=== PATIENT | female | born 1975 | race Two or more races ===

== ENCOUNTER 2016-07-30 13:56 | Outpatient (RCR) | payer MEDICARE, MEDICAID ==
[~2016-07-30 13:56] MED LIST: ACETAMINOP650 MG/20. ORAL; AMLODIPINE BESY10 MG ORAL; AMLODIPINE BESYL5 MG ORAL; AMOXICILLIN500 MG ORAL; AUGMENTIN 500M500 MG ORAL; CALCITRIOL0.25 MCG PO; CALCITRIOL1 MCG/1 ML ORAL; CILOXAN 0.3% O1 DROP; CLONIDINE 0.2M0.2 MG ORAL; COLACE100 MG ORAL; COLACE250 MG ORAL; COSOPT1 DRO2; COZAAR50 MG ORAL; CYCLOBENZAPRINE10 MG ORAL; IBUPROFEN600 MG ORAL; INSULIN SYRING1 EA44; LANTUS5 UNITS *; LEVAQUIN P IVPB; NEPHROVITE1 TAB ORAL; NKM; NORVASC10 MG ORAL; NORVASC5 MG ORAL; NOVOLOG100 UNIT/3 SUBQ; ORTHO TRI-CYCL1 EAC1 PO; PHOSLO PO; PHOSLO667 M1 ORAL; PROCARDIA XL90 M1 ORAL; PROCARDIA XL90 M1 PO; RENAGEL400 MG ORAL; RENAGEL800 MG ORAL; RENVELA800 MG ORAL; SANTYL30 GM; TUMS500 MG ORAL; TYLENOL EXTRA500 MG ORAL; VANCOMYCIN1 GM/2502 IVPB; VANCOMYCIN500 MG GT; VASOTEC20 MG PO
== END 2016-08-20 | disposition home or self-care (01) ==
LOC: WCC 13:56
DX: L97.512 Non-pressure chronic ulcer of other part of right foot with fat layer exposed (principal); E11.621 Type 2 diabetes mellitus with foot ulcer; M14.672 Charcot's joint, left ankle and foot; L89.893 Pressure ulcer of other site, stage 3; G60.3 Idiopathic progressive neuropathy; E11.22 Type 2 diabetes mellitus with diabetic chronic kidney disease; N18.6 End stage renal disease; Z90.49 Acquired absence of other specified parts of digestive tract; Z88.2 Allergy status to sulfonamides; Z88.6 Allergy status to analgesic agent; E10.22 Type 1 diabetes mellitus with diabetic chronic kidney disease; E11.49 Type 2 diabetes mellitus with other diabetic neurological complication; Z91.013 Allergy to seafood
CPT/HCPCS: 11042; 11055

== ENCOUNTER 2016-08-27 13:30 | Outpatient (RCR) | payer MEDICARE, MEDICAID | END 2016-09-20 | disposition home or self-care (01) | LOC: WCC 13:30 | DX: L97.512 Non-pressure chronic ulcer of other part of right foot with fat layer exposed (principal); E11.621 Type 2 diabetes mellitus with foot ulcer; M14.672 Charcot's joint, left ankle and foot; N18.6 End stage renal disease; E11.22 Type 2 diabetes mellitus with diabetic chronic kidney disease; Z90.49 Acquired absence of other specified parts of digestive tract; Z90.710 Acquired absence of both cervix and uterus; D64.9 Anemia, unspecified; Z88.2 Allergy status to sulfonamides; Z91.013 Allergy to seafood | CPT/HCPCS: G0463 ==

== ENCOUNTER 2017-04-29 14:30 | Outpatient (RCR) | payer MEDICARE, MEDICAID ==
[2017-05-01] MEDS ORDERED: ACETAMINOPHEN-1 EAC1 ORAL (12:59)
== END 2017-05-22 | disposition home or self-care (01) ==
LOC: WCC 14:30
DX: L97.511 Non-pressure chronic ulcer of other part of right foot limited to breakdown of skin (principal); E11.621 Type 2 diabetes mellitus with foot ulcer; M14.672 Charcot's joint, left ankle and foot; N18.6 End stage renal disease; E11.42 Type 2 diabetes mellitus with diabetic polyneuropathy; G99.0 Autonomic neuropathy in diseases classified elsewhere; E11.22 Type 2 diabetes mellitus with diabetic chronic kidney disease; L84 Corns and callosities; E11.628 Type 2 diabetes mellitus with other skin complications; Z88.2 Allergy status to sulfonamides
CPT/HCPCS: 11042; 11055

== ENCOUNTER 2017-05-01 11:57 | Emergency (ER) | payer MEDICARE, MEDICAID ==
[~2017-05-01] VITALS: Ht 165.1 cm; Wt 79.4 kg
[2017-05-01] MEDS ORDERED: ACETAMINOPHEN-1 EAC1 ORAL (12:59)
[2017-05-01 13:20] VITALS: BP 127/66
--- NOTE | 2017-05-01 14:07 | Diagnostic Imaging Report ---
Indication: Pain 3 views of the left knee were obtained. Findings: Bones are osteopenic. There are vascular calcifications present. No fracture or malalignment identified. Impression: No acute
--- NOTE | 2017-05-01 14:25 | Emergency Room Report ---
History of Present Illness General Chief Complaint: Lower Extremity Injury Source: Patient, Medical Record Present Illness HPI The patient is a 42-year-old female sent in for left knee pain. She states that this began yesterday while walking for no apparent reason. She denies falling or any injury to the knee. She denies previous injury to the knee. She states the pain is a 9/10 dull ache and does not radiate from the knee. Worse with movement. She denies any numbness or tingling. She denies other symptoms including fever, chills, calf pain, shortness of breath, rash. She denies history of gout or septic arthritis Allergies: Coded Allergies: SHELLFISH DERIVED (Verified Allergy, Intermediate, Rash, 11/03/14) HYDROMORPHONE (Unverified Allergy, Mild, 10/30/14) ONDANSETRON (Unverified Allergy, Mild, 10/30/14) HYDROMORPHONE HCL (Verified Allergy, Unknown, N/V, 06/01/14) NAUSEA AND VOMITING ONDANSETRON HCL (Verified Allergy, Unknown, GI IRRITATION, NAUSEA, VOMITTING, 06/01/14) GI IRRITATION, NAUSEA AND VOMITING SULFA (SULFONAMIDE ANTIBIOTICS) (Verified Allergy, Unknown, 10/05/15) Patient History Past Medical History: see triage record Last Menstrual Period: 04/27/17 Now: No Reviewed Nursing Documentation: PMH: Agreed, PSxH: Agreed Nursing Documentation-PMH Past Medical History: No History, Except For Hx Cardiac Problems: No - anemia Hx Hypertension: Yes Hx Diabetes: No Hx Cancer: No Hx Gastrointestinal Problems: Yes Hx Dialysis: Yes - Renal Failure, HEMODIALYSIS, Tu//Fri Hx Neurological Problems: No Hx Seizures: No Hx Dizziness: Yes - "I Fell February 20 2013 and have been dizzy since then." Hx Weakness: Yes - "I feel weak in my whole body." Review of Systems All Other Systems: negative except mentioned in HPI Physical Exam Vital Signs Date Time Temp Pulse Resp B/P (MAP) Pulse Ox O2 Delivery O2 Flow Rate FiO2 05/01/17 12:10 97.3 87 18 157/90 100 Room Air Sp02 EP Interpretation: reviewed, normal General Appearance: no apparent distress, alert, GCS 15, non-toxic Head: normocephalic, atraumatic Eyes: bilateral eye normal inspection, bilateral eye PERRL ENT: hearing grossly normal, normal pharynx, no angioedema, normal voice Neck: full range of motion, supple/symm/no masses Musculoskeletal: normal inspection - L knee, normal range of motion - L knee, no calf tenderness, other - The patient has a deformity of the left ankle which she states is chronic and has been unchanged Neurologic: alert, oriented x3, responsive, motor strength/tone normal, sensory intact, speech normal Psychiatric: judgement/insight normal, memory normal, mood/affect normal, no suicidal/homicidal ideation Skin: normal color, no rash, warm/dry, well hydrated Procedures Splinting Splinting : Consent: Verbal Location: L knee Pre-Made Type: NICK wrap Pre-Proc Neuro Vasc Exam: normal Post-Proc Neuro Vasc Exam: normal Patient Tolerated: Well Complications: None Medical Decision Making PA Attestation Dr. Christian is my supervising physician. Patient management was discussed with my supervising physician Diagnostic Impression: Primary Impression: Knee pain, left Qualified Codes: M25.562 - Pain in left knee ER Course The patient is a 42-year-old female sent in for left knee pain Ddx considered include but not limited to sprain/strain, fracture, contusion, gout, septic arthritis, among others PE: NAD Left knee: No obvious deformity. No skin changes. Full active range of motion is intact. No edema, No calf tenderness or swelling Left knee x-ray is unremarkable for acute findings Nick wrap is placed over the left knee The patient is discharged home with pain medication and will follow up with her primary doctor. ER precautions given Other X-Ray Diagnostic Results Other X-Ray Diagnostic Results : X-Ray ordered: L knee # of Views/Limited Vs Complete: 3 View Indication: Pain EP Interpretation: Yes PA Xray: Interpretation reviewed, by supervising MD, and agrees with findings. Interpretation: no dislocation, no soft tissue swelling, no fractures Impression: No acute disease Electronically Signed by: Cj Zelaya PA-C Last Vital Signs Date Time Temp Pulse Resp B/P (MAP) Pulse Ox O2 Delivery O2 Flow Rate FiO2 05/01/17 13:20 97.3 83 18 127/66 96 Room Air Status: improved Disposition: HOME, SELF-CARE Condition: Improved Scripts Acetaminophen With Codeine (T#3) (TYLENOL #3 TAB*) Y Tab 1 TAB ORAL Q6HR Y for For Pain, #12 TAB Prov: CJ ZELAYA 05/01/17 Referrals: PAL TREVINO (PCP) Patient Instructions: Knee Pain Additional Instructions: I discussed my findings with the patient. All questions and concerns have been answered. Treatment and medication compliance have been addressed. I advised the patient that they need to follow up with PMD in 3-5 days. Return to ED if pain remains or worsens, numbness or tingling occurs, new rash is noticed, fever is noticed, or if needed for any reason. Patient verbalized understanding of discharge instructions. CJ ZELAYA May 01, 2017 14:25
[2017-05-08] MEDS ORDERED: Neosporin Oint 15gm TOPIC ONE (11:30)
== END 2017-05-01 13:20 | disposition home or self-care (01) ==
LOC: EMR 13:05
DX: M25.562 Pain in left knee (principal); I10 Essential (primary) hypertension; M85.862 Other specified disorders of bone density and structure, left lower leg; Z88.2 Allergy status to sulfonamides; Z88.8 Allergy status to other drugs, medicaments and biological substances; Z91.013 Allergy to seafood
CPT/HCPCS: 99283

== ENCOUNTER 2017-07-15 14:34 | Outpatient (RCR) | payer MEDICARE, MEDICAID ==
[~2017-07-15 14:34] MED LIST changes: +ACETAMINOPHEN-1 EAC1 ORAL
== END 2017-07-23 | disposition home or self-care (01) ==
LOC: WCC 14:34
DX: L97.511 Non-pressure chronic ulcer of other part of right foot limited to breakdown of skin (principal); E11.621 Type 2 diabetes mellitus with foot ulcer; M14.672 Charcot's joint, left ankle and foot; N18.6 End stage renal disease; E11.42 Type 2 diabetes mellitus with diabetic polyneuropathy; G99.0 Autonomic neuropathy in diseases classified elsewhere; E11.628 Type 2 diabetes mellitus with other skin complications; Z90.89 Acquired absence of other organs; Z90.49 Acquired absence of other specified parts of digestive tract; E11.22 Type 2 diabetes mellitus with diabetic chronic kidney disease; Z99.2 Dependence on renal dialysis; L84 Corns and callosities; Z88.2 Allergy status to sulfonamides; Z88.8 Allergy status to other drugs, medicaments and biological substances
CPT/HCPCS: 11042

== ENCOUNTER 2017-09-16 14:03 | Outpatient (RCR) | payer MEDICARE, MEDICAID | END 2017-09-20 | disposition home or self-care (01) | LOC: WCC 14:03 | DX: L97.511 Non-pressure chronic ulcer of other part of right foot limited to breakdown of skin (principal); M14.672 Charcot's joint, left ankle and foot; N18.6 End stage renal disease; G99.0 Autonomic neuropathy in diseases classified elsewhere; L84 Corns and callosities; Z90.89 Acquired absence of other organs; Z90.49 Acquired absence of other specified parts of digestive tract; Z94.0 Kidney transplant status; E10.621 Type 1 diabetes mellitus with foot ulcer; E10.22 Type 1 diabetes mellitus with diabetic chronic kidney disease; Z99.2 Dependence on renal dialysis; Z88.2 Allergy status to sulfonamides; Z88.8 Allergy status to other drugs, medicaments and biological substances; Z91.013 Allergy to seafood | CPT/HCPCS: 11042 ==

== ENCOUNTER 2017-09-23 11:25 | Outpatient (RCR) | payer MEDICARE, MEDICAID | END 2017-10-20 | disposition home or self-care (01) | LOC: WCC 11:25 | DX: L97.511 Non-pressure chronic ulcer of other part of right foot limited to breakdown of skin (principal); M14.672 Charcot's joint, left ankle and foot; N18.6 End stage renal disease; G99.0 Autonomic neuropathy in diseases classified elsewhere; Z88.2 Allergy status to sulfonamides; Z90.89 Acquired absence of other organs; Z90.49 Acquired absence of other specified parts of digestive tract; Z94.0 Kidney transplant status; E10.22 Type 1 diabetes mellitus with diabetic chronic kidney disease; Z99.2 Dependence on renal dialysis; E10.621 Type 1 diabetes mellitus with foot ulcer; L84 Corns and callosities; Z88.8 Allergy status to other drugs, medicaments and biological substances | CPT/HCPCS: 11042 ==

== ENCOUNTER 2017-10-21 10:30 | Outpatient (RCR) | payer MEDICARE, MEDICAID | END 2017-11-20 | disposition home or self-care (01) | LOC: WCC 10:30 | DX: L97.511 Non-pressure chronic ulcer of other part of right foot limited to breakdown of skin (principal); E11.621 Type 2 diabetes mellitus with foot ulcer; M14.672 Charcot's joint, left ankle and foot; N18.6 End stage renal disease; E11.42 Type 2 diabetes mellitus with diabetic polyneuropathy; G99.0 Autonomic neuropathy in diseases classified elsewhere; E11.628 Type 2 diabetes mellitus with other skin complications; E11.22 Type 2 diabetes mellitus with diabetic chronic kidney disease; Z99.2 Dependence on renal dialysis; Z90.49 Acquired absence of other specified parts of digestive tract; Z90.89 Acquired absence of other organs; Z94.0 Kidney transplant status; Z88.2 Allergy status to sulfonamides; Z88.8 Allergy status to other drugs, medicaments and biological substances; Z91.013 Allergy to seafood | CPT/HCPCS: 11042; 15275; Q4133 ==

== ENCOUNTER 2017-12-23 10:28 | Outpatient (RCR) | payer MEDICARE, MEDICAID | END 2018-01-20 | disposition home or self-care (01) | LOC: WCC 10:28 | DX: L97.511 Non-pressure chronic ulcer of other part of right foot limited to breakdown of skin (principal); M14.672 Charcot's joint, left ankle and foot; N18.6 End stage renal disease; G99.0 Autonomic neuropathy in diseases classified elsewhere; Z88.2 Allergy status to sulfonamides; Z88.8 Allergy status to other drugs, medicaments and biological substances; Z90.89 Acquired absence of other organs; Z90.49 Acquired absence of other specified parts of digestive tract; Z94.0 Kidney transplant status; E10.22 Type 1 diabetes mellitus with diabetic chronic kidney disease; E10.621 Type 1 diabetes mellitus with foot ulcer; E10.42 Type 1 diabetes mellitus with diabetic polyneuropathy; Z91.013 Allergy to seafood | CPT/HCPCS: 11043 ==

== ENCOUNTER 2018-01-27 14:57 | Outpatient (RCR) | payer MEDICARE, MEDICAID | END 2018-02-20 | disposition home or self-care (01) | LOC: WCC 14:57 | DX: L97.511 Non-pressure chronic ulcer of other part of right foot limited to breakdown of skin (principal); E11.621 Type 2 diabetes mellitus with foot ulcer; M14.672 Charcot's joint, left ankle and foot; N18.6 End stage renal disease; E11.42 Type 2 diabetes mellitus with diabetic polyneuropathy; G99.0 Autonomic neuropathy in diseases classified elsewhere; E11.628 Type 2 diabetes mellitus with other skin complications; Z88.2 Allergy status to sulfonamides; Z88.8 Allergy status to other drugs, medicaments and biological substances; E11.22 Type 2 diabetes mellitus with diabetic chronic kidney disease; Z99.2 Dependence on renal dialysis; Z90.89 Acquired absence of other organs; Z90.49 Acquired absence of other specified parts of digestive tract; Z94.0 Kidney transplant status | CPT/HCPCS: 11043 ==

== ENCOUNTER 2018-02-24 14:00 | Outpatient (RCR) | payer MEDICARE, MEDICAID | END 2018-03-22 | disposition home or self-care (01) | LOC: WCC 14:00 | DX: L97.513 Non-pressure chronic ulcer of other part of right foot with necrosis of muscle (principal); E11.621 Type 2 diabetes mellitus with foot ulcer; E11.42 Type 2 diabetes mellitus with diabetic polyneuropathy; G99.0 Autonomic neuropathy in diseases classified elsewhere; E11.628 Type 2 diabetes mellitus with other skin complications; Z90.89 Acquired absence of other organs; Z90.49 Acquired absence of other specified parts of digestive tract; M14.672 Charcot's joint, left ankle and foot; Z88.2 Allergy status to sulfonamides; E11.22 Type 2 diabetes mellitus with diabetic chronic kidney disease; N18.6 End stage renal disease; Z99.2 Dependence on renal dialysis; Z94.0 Kidney transplant status; Z88.8 Allergy status to other drugs, medicaments and biological substances; L97.511 Non-pressure chronic ulcer of other part of right foot limited to breakdown of skin | CPT/HCPCS: 11042; 11043; 11055 ==

== ENCOUNTER 2018-03-31 14:11 | Outpatient (RCR) | payer MEDICARE, MEDICAID | END 2018-04-22 | disposition home or self-care (01) | LOC: WCC 14:11 | DX: L97.511 Non-pressure chronic ulcer of other part of right foot limited to breakdown of skin (principal); E11.621 Type 2 diabetes mellitus with foot ulcer; M14.672 Charcot's joint, left ankle and foot; N18.6 End stage renal disease; E11.42 Type 2 diabetes mellitus with diabetic polyneuropathy; G99.0 Autonomic neuropathy in diseases classified elsewhere; E11.628 Type 2 diabetes mellitus with other skin complications; L60.2 Onychogryphosis; E11.22 Type 2 diabetes mellitus with diabetic chronic kidney disease; Z90.89 Acquired absence of other organs; Z90.49 Acquired absence of other specified parts of digestive tract; Z94.0 Kidney transplant status; Z88.2 Allergy status to sulfonamides; Z99.2 Dependence on renal dialysis | CPT/HCPCS: 11042; 11721 ==

== ENCOUNTER 2018-12-29 13:25 | Outpatient (RCR) | payer MEDICARE, MEDICAID | END 2019-01-20 | disposition home or self-care (01) | LOC: WCC 13:25 | DX: E11.628 Type 2 diabetes mellitus with other skin complications (principal); N18.6 End stage renal disease; E11.42 Type 2 diabetes mellitus with diabetic polyneuropathy; G99.0 Autonomic neuropathy in diseases classified elsewhere; L84 Corns and callosities; M14.679 Charcot's joint, unspecified ankle and foot; E10.22 Type 1 diabetes mellitus with diabetic chronic kidney disease; Z88.2 Allergy status to sulfonamides; Z90.49 Acquired absence of other specified parts of digestive tract; Z90.89 Acquired absence of other organs; Z94.0 Kidney transplant status; L85.9 Epidermal thickening, unspecified; Z88.8 Allergy status to other drugs, medicaments and biological substances | CPT/HCPCS: 11055 ==

== ENCOUNTER 2019-03-30 18:56 | Emergency (ER) | payer MEDICARE, MEDICAID ==
[~2019-03-30] VITALS: Ht 162.6 cm; Wt 99.8 kg
[2019-03-30 19:24] VITALS: BP 132/64
--- NOTE | 2019-03-30 19:24 | NUR ---
ED Nurse Note: pt ambulated to ed with with steady gait c/o of generalized swelling from face to abdomen s/p taking mylanta yesterday at 1200. pt placed into gown and placed on lunchroom monitor. urine specimen obtained.
--- NOTE | 2019-03-30 19:30 | NUR ---
ED Nurse Note: pt denies nausea, vomiting, and abdomnial pain. pt states she has an appointment with GI md and bisque placer tomorrow.
--- NOTE | 2019-03-30 19:40 | Emergency Room Report ---
History of Present Illness General Chief Complaint: Abdominal Pain Source: Patient Present Illness HPI Disclaimer: Please note that this report is being documented using DRAGON technology. This can lead to erroneous entry secondary to incorrect interpretation by the dictating instrument. HPI: 44-year-old female with a history of ESRD status post donor kidney transplant 2017, hypertension presents for evaluation of bloating. Patient states she has had intermittent periumbilical abdominal pain and constipation with increased gas for the past month. She started taking some Mylanta and calcium supplements 3 days ago after which she noticed her face and torso were becoming "bloated." She also reported itching but denied any urticaria, skin breakdown, throat closure sensation, wheezing, vomiting or diarrhea. She has no abdominal pain at this time and has scheduled follow-up with her assistant auditor in 2 days and her adolescent psychiatrist next week. She was told to go to the ER by her assistant auditor to evaluate her kidney function as a possible cause of fluid retention. She is otherwise feeling well and has no complaints. Denies any recent illness, fever, chills, chest pain, shortness of breath. Has stopped taking the Mylanta and the calcium. PMH: ESRD status post kidney transplant, hypertension PSH: Appendectomy, cholecystectomy, kidney transplant 2017 Allergies: Zofran, shellfish Social Hx: Denies smoking, alcohol or tobacco use Allergies: Coded Allergies: SHELLFISH DERIVED (Verified Allergy, Intermediate, Rash, 11/03/14) ONDANSETRON (Unverified Allergy, Mild, 10/30/14) ONDANSETRON HCL (Verified Allergy, Unknown, GI IRRITATION, NAUSEA, VOMITTING, 06/01/14) GI IRRITATION, NAUSEA AND VOMITING Patient History Last Menstrual Period: 02/2019 Now: No Nursing Documentation-PMH Hx Cardiac Problems: No - anemia Hx Hypertension: Yes Hx Diabetes: Yes Hx Cancer: No Hx Gastrointestinal Problems: Yes - Kidney transplant 05/25/2017 Hx Dialysis: Yes - Renal Failure, Hx Neurological Problems: No Hx Seizures: No Hx Dizziness: Yes - "I Fell February 20 2013 and have been dizzy since then." Hx Weakness: Yes - "I feel weak in my whole body." Review of Systems All Other Systems: negative except mentioned in HPI Physical Exam Vital Signs Date Time Temp Pulse Resp B/P (MAP) Pulse Ox O2 Delivery O2 Flow Rate FiO2 03/30/19 19:12 97.5 77 16 132/64 (86) 96 Room Air General: Awake and alert, no acute distress HEENT: NC/AT. EOMI. no periorbital edema, uvula midline. Neck: Supple, trachea midline Chest Wall: No tenderness, no deformity Cardiovascular: RRR. S1 and S2 normal. No murmur appreciated Resp: Normal work of breathing. No cough, wheezing or crackles appreciated Abdomen: Abdomen is soft, his abdomen, nondistended. Nontender Skin: Intact. No abrasions, laceration or rash over the exposed skin, no urticaria or breakdown. Transplant scar in the right lower quadrant is clean dry and intact. MSK: Normal tone and bulk. Moving all extremities. No obvious deformity. Neuro: Awake and alert. Mentating appropriately. Medical Decision Making Diagnostic Impression: Primary Impression: Allergic reaction Additional Impression: Edema ER Course 44-year-old female status post kidney transplant in 2017 presents for evaluation of edema and bloating. Will assess her kidney function but otherwise there is no evidence of anaphylaxis. She may have hypersensitivity to the Mylanta but arrives with stable vital signs and is in no acute distress. She declined Benadryl. Will check screening labs to assess renal function. She has an appointment to follow-up with her assistant auditor in 2 days. Disposition dependent on lab results Laboratory Tests Test 03/30/19 19:36 White Blood Count 8.8 K/UL (4.8-10.8) Red Blood Count 5.29 M/UL (4.20-5.40) Hemoglobin 14.6 G/DL (12.0-16.0) Hematocrit 45.8 % (37.0-47.0) Mean Corpuscular Volume 86 FL (80-99) Mean Corpuscular Hemoglobin 27.6 PG (27.0-31.0) Mean Corpuscular Hemoglobin Concent 32.0 G/DL (32.0-36.0) Red Cell Distribution Width 13.5 % (11.6-14.8) Platelet Count 247 K/UL (150-450) Mean Platelet Volume 7.1 FL (6.5-10.1) Neutrophils (%) (Auto) 75.6 % (45.0-75.0) H Lymphocytes (%) (Auto) 13.9 % (20.0-45.0) L Monocytes (%) (Auto) 8.5 % (1.0-10.0) Eosinophils (%) (Auto) 1.2 % (0.0-3.0) Basophils (%) (Auto) 0.7 % (0.0-2.0) Urine Color Pale yellow Urine Appearance Clear Urine pH 5 (4.5-8.0) Urine Specific [place] 1.010 (1.005-1.035) Urine Protein Negative (NEGATIVE) Urine Glucose (UA) 1+ (NEGATIVE) H Urine Ketones Negative (NEGATIVE) Urine Blood 1+ (NEGATIVE) H Urine Nitrite Negative (NEGATIVE) Urine Bilirubin Negative (NEGATIVE) Urine Urobilinogen Normal MG/DL (0.0-1.0) Urine Leukocyte Esterase 1+ (NEGATIVE) H Urine RBC 0-2 /HPF (0 - 2) Urine WBC 0-2 /HPF (0 - 2) Urine Squamous Epithelial Cells Few /LPF (NONE/OCC) Urine Bacteria Occasional /HPF (NONE) Sodium Level 135 MMOL/L (136-145) L Potassium Level 4.1 MMOL/L (3.5-5.1) Chloride Level 99 MMOL/L (98-107) Carbon Dioxide Level 26 MMOL/L (21-32) Anion Gap 10 mmol/L (5-15) Blood Urea Nitrogen 45 mg/dL (7-18) H Creatinine 1.6 MG/DL (0.55-1.30) H Estimate Glomerular Filtration Rate 34.9 mL/min (>60) Glucose Level 240 MG/DL (74-106) H Calcium Level 9.4 MG/DL (8.5-10.1) Reevaluation Time: 21:03 Last Vital Signs Date Time Temp Pulse Resp B/P (MAP) Pulse Ox O2 Delivery O2 Flow Rate FiO2 03/30/19 19:24 77 16 Room Air 03/30/19 19:24 97.5 132/64 96 Reevaluation Impression Labs are largely within normal limits. No evidence of urinary tract infection, no white count, creatinine is 1.6 which the patient states is around her baseline. She is reassured and will be discharged home. I instructed her no longer to take the Mylanta and calcium until an obvious trigger can be identified. She will follow-up with her assistant auditor at her scheduled appointment later this week. We discussed reasons to return to the emergency department. She understands and agrees with treatment plan will be discharged home. Disposition: HOME, SELF-CARE Condition: Stable Pablito Elias MD Mar 30, 2019 19:40
[2019-03-30 20:01] LABS: APPEARANCE,URINE CLEAR; BILIRUBIN, URINE NEGATIVE (NEGATIVE); COLOR,URINE PALE YELLOW; GLUCOSE, URINE (UA) 1+ (NEGATIVE); KETONES,URINE NEGATIVE (NEGATIVE); LEUKOCYTE ESTERASE ,URINE 1+ (NEGATIVE); NITRITE,URINE NEGATIVE (NEGATIVE); PH,URINE 5 (4.5-8.0); PROTEIN,URINE NEGATIVE (NEGATIVE); UROBILINOGEN,URINE NORMAL MG/DL (0.0-1.0)
[2019-03-30 20:10] LABS: ANION GAP 10 mmol/L (5-15); BLOOD UREA NITROGEN 45 mg/dL (7-18); CALCIUM 9.4 MG/DL (8.5-10.1); CARBON DIOXIDE 26 MMOL/L (21-32); CHLORIDE 99 MMOL/L (98-107); CREATININE 1.6 MG/DL (0.55-1.30); POTASSIUM 4.1 MMOL/L (3.5-5.1); SODIUM 135 MMOL/L (136-145)
[2019-03-30 20:12] LABS: BASOPHILS % (AUTO) 0.7 % (0.0-2.0); EOSINOPHILS % (AUTO) 1.2 % (0.0-3.0); HEMATOCRIT 45.8 % (37.0-47.0); HEMOGLOBIN 14.6 G/DL (12.0-16.0); LYMPHOCYTES % (AUTO) 13.9 % (20.0-45.0); MEAN CORPUSCULAR VOLUME 86 FL (80-99); MONOCYTES % (AUTO) 8.5 % (1.0-10.0); NEUTROPHILS % (AUTO) 75.6 % (45.0-75.0); PLATELET COUNT 247 K/UL (150-450); RED BLOOD COUNT 5.29 M/UL (4.20-5.40); RED CELL DISTRIBUTION WIDTH 13.5 % (11.6-14.8); WHITE BLOOD COUNT 8.8 K/UL (4.8-10.8)
[2019-03-30 21:04] VITALS: BP 126/76
--- NOTE | 2019-03-30 21:04 | NUR ---
ED Nurse Note: pt cleared to be d/c per ermd, pt discharge and aftercare instruction provided, pt education done via discussion and handout, pt advised to follow up with pcp or return to ed if changes in condition, vss, ambulatory w/ steady gait, left w/ all belongings. iv d/c. id band removed.
== END 2019-03-30 21:04 | disposition home or self-care (01) ==
LOC: EMR 19:53
DX: R60.9 Edema, unspecified (principal); T78.40XA Allergy, unspecified, initial encounter; R10.33 Periumbilical pain; E11.22 Type 2 diabetes mellitus with diabetic chronic kidney disease; I12.0 Hypertensive chronic kidney disease with stage 5 chronic kidney disease or end stage renal disease; N18.6 End stage renal disease; Z94.0 Kidney transplant status; Z91.013 Allergy to seafood; Z88.8 Allergy status to other drugs, medicaments and biological substances; X58.XXXA Exposure to other specified factors, initial encounter
CPT/HCPCS: 36415; 80048; 81003; 85025; 99283

== ENCOUNTER 2019-09-18 21:51 | Emergency (ER) | payer MEDICARE, MEDICAID ==
[~2019-09-18] VITALS: Ht 165.1 cm; Wt 104.3 kg
--- NOTE | 2019-09-18 22:02 | NUR ---
ED Nurse Note: Walk-in patient with complaints of palpitations x 1 day and also shares that she noticed decreased urine output with history of kidney transplant x 1. Patient has history of recent diagnosis of hashimotos, hypercholesterol, hypertension and DMII. Patient placed on traffic monitor specialist after physical assessment. Patient able to ambulate with uneven gait due to uneven boot. Patient able to void to render urine sample. will continue to monitor for orders and discharge.
[2019-09-18 22:17] VITALS: BP 104/34
--- NOTE | 2019-09-18 22:17 | NUR ---
ED Nurse Note: microbiological lab technician at bedside completing EKG.
--- NOTE | 2019-09-18 22:34 | Emergency Room Report ---
History of Present Illness General Chief Complaint: Palpitations Source: Patient Present Illness HPI This is a 44-year-old female with a history of kidney transplant in 2017. She presents with chief complaint of palpitation and decreased urination. Is been on and off for last couple days. No fever chills. No chest pain. She complains some dizziness with standing. No nausea or vomiting. No chest pain. Never had palpitation before. She is felt that when she walks she felt her heart beating fast. Denies any other complaint. Allergies: Coded Allergies: SHELLFISH DERIVED (Verified Allergy, Intermediate, Rash, 11/03/14) ONDANSETRON (Unverified Allergy, Mild, 10/30/14) ONDANSETRON HCL (Verified Allergy, Unknown, GI IRRITATION, NAUSEA, VOMITTING, 06/01/14) GI IRRITATION, NAUSEA AND VOMITING COVID-19 Screening Contact w/high risk pt: No Recent Travel to affected area: No Experienced COVID-19 symptoms?: No Patient History Past Medical History: see triage record, old chart reviewed Past Surgical History: other Pertinent Family History: none Social History: Denies: smoking Now: No Immunizations: other Reviewed Nursing Documentation: PMH: Agreed; PSxH: Agreed Nursing Documentation-PMH Hx Cardiac Problems: No - anemia, Marleny's Hx Hypertension: Yes Hx Diabetes: Yes Hx Cancer: No Hx Gastrointestinal Problems: Yes - Kidney transplant 05/25/2017 Hx Dialysis: Yes - Renal Failure, Hx Neurological Problems: No Hx Seizures: No Hx Dizziness: Yes - "I Fell February 20 2013 and have been dizzy since then." Hx Weakness: Yes - "I feel weak in my whole body." Review of Systems Eye: Denies: eye pain, blurred vision ENT: Denies: ear pain, nose congestion, throat swelling Respiratory: Denies: cough, shortness of breath Cardiovascular: Reports: palpitations; Denies: chest pain Gastrointestinal: Denies: abdominal pain, diarrhea, nausea, vomiting Musculoskeletal: Denies: back pain, joint pain Skin: Denies: rash Neurological: Denies: headache, numbness Endocrine: Denies: increased thirst, increased urine Hematologic/Lymphatic: Denies: easy bruising All Other Systems: negative except mentioned in HPI Physical Exam Vital Signs Date Time Temp Pulse Resp B/P (MAP) Pulse Ox O2 Delivery O2 Flow Rate FiO2 09/18/19 21:53 97.7 89 19 104/34 (57) 97 Room Air Vitals normal Sp02 EP Interpretation: reviewed, normal General Appearance: well appearing, no apparent distress, alert Head: normocephalic, atraumatic Eyes: bilateral eye PERRL, bilateral eye EOMI ENT: hearing grossly normal, normal pharynx Neck: full range of motion, supple, no meningismus Respiratory: chest non-tender, lungs clear, normal breath sounds Cardiovascular #1: regular rate, rhythm, no murmur Gastrointestinal: normal bowel sounds, non tender, no mass, no organomegaly, no bruit, non-distended Musculoskeletal: back normal, normal range of motion, gait/station normal Psychiatric: mood/affect normal Medical Decision Making Diagnostic Impression: Primary Impression: Palpitations Additional Impression: Hyperglycemia due to type 1 diabetes mellitus ER Course Patient presents with palpitation. Heart rates been in the 70s and 80s here. No arrhythmia. Kidney function is improved compared to last time she was here. That has been several months however. Her blood sugar is poorly controlled. She says she take NovoLog for it. I see no evidence of ACS, PE, dissection to name a few. No evidence of endorgan damage. Will discharge home after IV fluid. EKG Diagnostic Results Rate: normal Rhythm: NSR ST Segments: no acute changes Rhythm Strip Diag. Results EP Interpretation: yes Rate: 86 Rhythm: NSR, no PVC's, no ectopy Last Vital Signs Date Time Temp Pulse Resp B/P (MAP) Pulse Ox O2 Delivery O2 Flow Rate FiO2 09/18/19 22:17 97.7 86 19 104/34 97 Room Air Status: improved Disposition: HOME, SELF-CARE Condition: Stable Patient Instructions: Palpitations Additional Instructions: Follow-up with your doctor in 7 days. You may need a referral to see a truck jumper for Holter monitoring if you continue to have palpitation. Return if worse. Conner Keyes MD Sep 18, 2019 22:34
--- NOTE | 2019-09-18 22:49 | NUR ---
ED Nurse Note: IV started at left AC able to pull blood but unable to push without pain. IV at left AC Dc'd. IV at left hand started 22G, IV N/S fluid runnig wide open. Will continue to monitor patient for lab results and discharge.
[2019-09-18 22:51] VITALS: BP 163/64
[2019-09-18 22:52] LABS: APPEARANCE,URINE CLEAR; BILIRUBIN, URINE NEGATIVE (NEGATIVE); COLOR,URINE PALE YELLOW; GLUCOSE, URINE (UA) 3+ (NEGATIVE); KETONES,URINE NEGATIVE (NEGATIVE); LEUKOCYTE ESTERASE ,URINE NEGATIVE (NEGATIVE); NITRITE,URINE NEGATIVE (NEGATIVE); PH,URINE 6.5 (4.5-8.0); PROTEIN,URINE NEGATIVE (NEGATIVE); UROBILINOGEN,URINE NORMAL MG/DL (0.0-1.0)
[2019-09-18 22:53] LABS: BASOPHILS % (AUTO) 2.9 % (0.0-2.0); EOSINOPHILS % (AUTO) 1.7 % (0.0-3.0); HEMATOCRIT 43.7 % (37.0-47.0); HEMOGLOBIN 13.7 G/DL (12.0-16.0); LYMPHOCYTES % (AUTO) 12.5 % (20.0-45.0); MEAN CORPUSCULAR VOLUME 88 FL (80-99); MONOCYTES % (AUTO) 4.9 % (1.0-10.0); PLATELET COUNT 223 K/UL (150-450); RED BLOOD COUNT 4.99 M/UL (4.20-5.40); WHITE BLOOD COUNT 9.4 K/UL (4.8-10.8)
[2019-09-18 23:03] LABS: ANION GAP 10 mmol/L (5-15); BLOOD UREA NITROGEN 43 mg/dL (7-18); CALCIUM 9.1 MG/DL (8.5-10.1); CARBON DIOXIDE 24 MMOL/L (21-32); CHLORIDE 98 MMOL/L (98-107); CREATININE 1.5 MG/DL (0.55-1.30); POTASSIUM 4.3 MMOL/L (3.5-5.1); SODIUM 132 MMOL/L (136-145)
--- NOTE | 2019-09-18 23:20 | NUR ---
ED Nurse Note: Patient resting comfortably, IV N/S runing, will continue to monitor for discharge.
[2019-09-18] MEDS ORDERED: Insulin Human Regular 100units/ml 3ml IV ONE (23:30)
[2019-09-19 00:35] VITALS: BP 163/64
--- NOTE | 2019-09-19 00:35 | NUR ---
ER DISCHARGE NOTE: Patient is cleared to be discharged per ERMD, pt is aox4, on room air, with stable vital signs. pt was given dc and prescription instructions, pt was able to verbalize understanding, pt id band and iv site removed without complications. pt is able to ambulate with steady gait. pt took all belongings.
== END 2019-09-19 00:35 | disposition home or self-care (01) ==
LOC: EMR 22:56
DX: R00.2 Palpitations (principal); E10.65 Type 1 diabetes mellitus with hyperglycemia; Z94.0 Kidney transplant status; Z88.8 Allergy status to other drugs, medicaments and biological substances; I10 Essential (primary) hypertension; Z91.013 Allergy to seafood; R42 Dizziness and giddiness
CPT/HCPCS: 36415; 80048; 81001; 85025; 93005; 96361; 96374; 99284; J1815; J7030

== ENCOUNTER 2019-12-24 20:23 | Emergency (ER) | payer MEDICARE, MEDICAID ==
[~2019-12-24] VITALS: Ht 165.1 cm; Wt 106.6 kg
--- NOTE | 2019-12-24 20:35 | NUR ---
ED Nurse Note: pt refused to be placed on monitor. pt informed of potential risks and necessity. Pt maintained refusal of being placed on monitor.
[2019-12-24 20:42] VITALS: BP 100/54
--- NOTE | 2019-12-24 20:42 | NUR ---
ED Nurse Note: pt ambulated into ED from home Co burning in lower abdomen and genital area with chills and slight body aches on left side of body only. Pt aao x 4, VSS no ss of distress noted. Pt ambulates with steady gait with use of assistive walker. ERMD at bedside.
--- NOTE | 2019-12-24 20:47 | Emergency Room Report ---
History of Present Illness General Chief Complaint: Female Urogenital Problems Source: Patient Present Illness HPI Is a 44-year-old female presents after increased burning with urination. Patient had recently been seen by her transplant doctor and had been given a course of amoxicillin 500 mg daily. Patient is on Prograf as well as mycophenolate and prednisone 5 mg daily. Reports having baseline creatinine at 1.2. She reports being compliant with her medications. Denies any vomiting. Denies any weakness or dizziness. Denies any chest discomfort or cough. She reportedly has prior history of diabetes. Had transplant in 2017. Allergies: Coded Allergies: SHELLFISH DERIVED (Verified Allergy, Intermediate, Rash, 11/03/14) ONDANSETRON (Unverified Allergy, Mild, 10/30/14) ONDANSETRON HCL (Verified Allergy, Unknown, GI IRRITATION, NAUSEA, VOMITTING, 06/01/14) GI IRRITATION, NAUSEA AND VOMITING COVID-19 Screening Contact w/high risk pt: No Recent Travel to affected area: No Experienced COVID-19 symptoms?: No COVID-19 Testing performed EMERGENCY DEPARTMENT COORDINATOR: No Patient History Past Medical History: see triage record Last Menstrual Period: 11/2019 Reviewed Nursing Documentation: PMH: Agreed; PSxH: Agreed Nursing Documentation-PMH Hx Cardiac Problems: No - anemia, Marleny's Hx Hypertension: Yes Hx Diabetes: Yes Hx Cancer: No Hx Gastrointestinal Problems: Yes - Kidney transplant 05/25/2017 Hx Dialysis: Yes - Renal Failure, Hx Neurological Problems: No Hx Seizures: No Hx Dizziness: Yes - "I Fell February 20 2013 and have been dizzy since then." Hx Weakness: Yes - "I feel weak in my whole body." Review of Systems All Other Systems: negative except mentioned in HPI Physical Exam Vital Signs Date Time Temp Pulse Resp B/P (MAP) Pulse Ox O2 Delivery O2 Flow Rate FiO2 12/24/19 20:32 98.2 85 16 100/54 (69) 98 Room Air Sp02 EP Interpretation: reviewed, normal General Appearance: normal inspection, well appearing, no apparent distress, alert, GCS 15 Head: atraumatic ENT: normal ENT inspection, hearing grossly normal, normal voice Neck: normal inspection, full range of motion, supple, no bony tend Respiratory: normal inspection, lungs clear, normal breath sounds, no respiratory distress, no retraction, no wheezing Cardiovascular #1: regular rate, rhythm, no edema Gastrointestinal: normal inspection, normal bowel sounds, non tender, soft, no guarding, no hernia Genitourinary: no CVA tenderness Musculoskeletal: normal inspection, back normal, normal range of motion Neurologic: alert, responsive, speech normal, normal inspection Psychiatric: normal inspection, judgement/insight normal, mood/affect normal Medical Decision Making Diagnostic Impression: Primary Impression: Urinary tract infection Additional Impression: Transplant recipient ER Course Patient presented for increased dysuria. Differential diagnosis include was not limited to urinary tract infection, diverticulitis, kidney disease among others. Because of complexity of patient's case laboratory tests and imaging studies were ordered. Patient is Very good historian and has history of transplant. She does not appear to be in any acute distress.Laboratory testing showed normal white blood count. I discussed the patient's laboratory testing with the quality management coordinator from [facility] and they recommended that the patient be followed up with her telephone interceptor operator. Patient was given IV Rocephin in the emergency department and she was advised to follow-up with her telephone interceptor operator in 1 to 2 days for recheck of blood counts and creatinine. She is given prescription for Keflex. Patient was advised to return if any worsening or other concerns. She is advised that cultures were pending and may require change of antibiotics if nonsensitive organism. Patient is advised to return if any worsening condition or if any changes in status that are concerning. This report is dictated with [employer] ground services instructor software which may occasionally lead to discrepancies related to use of this software. Labs Test 12/24/19 20:50 Urine Color Pale yellow Urine Appearance Slightly cloudy Urine pH 5 (4.5-8.0) Urine Specific [place] 1.010 (1.005-1.035) Urine Protein Negative (NEGATIVE) Urine Glucose (UA) Negative (NEGATIVE) Urine Ketones Negative (NEGATIVE) Urine Blood 4+ (NEGATIVE) Urine Nitrite Negative (NEGATIVE) Urine Bilirubin Negative (NEGATIVE) Urine Urobilinogen Normal MG/DL (0.0-1.0) Urine Leukocyte Esterase 3+ (NEGATIVE) Urine RBC 0-2 /HPF (0 - 2) Urine WBC Tntc /HPF (0 - 2) Urine Squamous Epithelial Cells Occasional /LPF Urine Bacteria Few /HPF (NONE) Sodium Level 135 MMOL/L (136-145) Potassium Level 4.1 MMOL/L (3.5-5.1) Chloride Level 100 MMOL/L (98-107) Carbon Dioxide Level 24 MMOL/L (21-32) Anion Gap 11 mmol/L (5-15) Blood Urea Nitrogen 30 mg/dL (7-18) Creatinine 1.5 MG/DL (0.55-1.30) Estimat Glomerular Filtration Rate 37.5 mL/min (>60) Glucose Level 231 MG/DL (74-106) Calcium Level 9.0 MG/DL (8.5-10.1) Last Vital Signs Date Time Temp Pulse Resp B/P (MAP) Pulse Ox O2 Delivery O2 Flow Rate FiO2 12/24/19 20:32 98.2 85 16 100/54 (69) 98 Room Air Status: improved Disposition: HOME, SELF-CARE Condition: Stable Scripts Cephalexin* (KEFLEX*) 500 Mg Capsule 500 MG ORAL EVERY 12 HOURS, #14 CAP 0 Refills Prov: Evelio Sanchez MD 12/24/19 Evelio Sanchez MD Dec 24, 2019 20:47
--- NOTE | 2019-12-24 20:59 | NUR ---
ED Nurse Note: IV line initiated on left forearm. Pt states she has active fistula on right upper arm. Pt has hx of kidney transplant 2017.
--- NOTE | 2019-12-24 21:00 | NUR ---
ED Nurse Note: all blood work and urine sent to lab
--- NOTE | 2019-12-24 21:05 | NUR ---
ED Nurse Note: ERMD at bedside
[2019-12-24] MEDS ORDERED: cefTRIAXone 1 GM in NS 55 ML IVPB ONE (21:45)
--- NOTE | 2019-12-24 21:45 | NUR ---
ED Nurse Note: ALL MEDICATIONS ADMINISTERED. PT TOLERATED WELL NO SS OF DISTRESS NOTED. WILL CONTINUE TO MONITOR.
[2019-12-24 21:55] LABS: APPEARANCE,URINE SLIGHTLY CLOUDY; BILIRUBIN, URINE NEGATIVE (NEGATIVE); COLOR,URINE PALE YELLOW; GLUCOSE, URINE (UA) NEGATIVE (NEGATIVE); KETONES,URINE NEGATIVE (NEGATIVE); LEUKOCYTE ESTERASE ,URINE 3+ (NEGATIVE); NITRITE,URINE NEGATIVE (NEGATIVE); PH,URINE 5 (4.5-8.0); PROTEIN,URINE NEGATIVE (NEGATIVE); UROBILINOGEN,URINE NORMAL MG/DL (0.0-1.0)
[2019-12-24 21:59] LABS: ANION GAP 11 mmol/L (5-15); BLOOD UREA NITROGEN 30 mg/dL (7-18); CARBON DIOXIDE 24 MMOL/L (21-32); CHLORIDE 100 MMOL/L (98-107); CREATININE 1.5 MG/DL (0.55-1.30); POTASSIUM 4.1 MMOL/L (3.5-5.1); SODIUM 135 MMOL/L (136-145)
--- NOTE | 2019-12-24 22:00 | NUR ---
ED Nurse Note: ERMD at bedside
[2019-12-24 22:10] VITALS: BP 122/52
[2019-12-24 22:10] LABS: BASOPHILS % (AUTO) 0.9 % (0.0-2.0); EOSINOPHILS % (AUTO) 1.6 % (0.0-3.0); LYMPHOCYTES % (AUTO) 14.2 % (20.0-45.0); MEAN CORPUSCULAR VOLUME 86 FL (80-99); MONOCYTES % (AUTO) 6.3 % (1.0-10.0); NEUTROPHILS % (AUTO) 77.1 % (45.0-75.0); PLATELET COUNT 295 K/UL (150-450); RED CELL DISTRIBUTION WIDTH 14.1 % (11.6-14.8); WHITE BLOOD COUNT 9.9 K/UL (4.8-10.8)
--- NOTE | 2019-12-24 22:10 | NUR ---
ED Nurse Note: ALL MEDICATIONS ADMINISTERED, PT TOLERATED WELL NO SS OF DISTRESS NOTED. WILL CONTINUE TO MONITOR.
[2019-12-24 22:13] LABS: ALANINE AMINOTRANSFERASE 24 U/L (12-78); ALBUMIN 4.1 G/DL (3.4-5.0); ALKALINE PHOSPHATASE 102 U/L (46-116); ASPARTATE AMINO TRANSFERASE 17 U/L (15-37); BILIRUBIN,TOTAL 0.4 MG/DL (0.2-1.0); CKMB 1.4 NG/ML (0.0-3.6); CREATINE KINASE 60 U/L (26-308)
[2019-12-24] MEDS ORDERED: CEPHALEXIN500 MG ORAL (22:27)
[2019-12-24 23:29] VITALS: BP 135/55
--- NOTE | 2019-12-24 23:30 | NUR ---
ED Nurse Note: pt states that she does not wish to finish the IV fluids. Pt has received 500ml out of 1000ml. ERMD notified. awaiting ERMD at bedside.
--- NOTE | 2019-12-24 23:35 | NUR ---
ED Nurse Note: ERMD at bedside
[2019-12-25 00:37] VITALS: BP 139/57
--- NOTE | 2019-12-25 00:37 | NUR ---
ER DISCHARGE NOTE: Patient is cleared to be discharged home per ERMD, pt is aox4, 99% on room air, with stable vital signs. pt was given dc and prescription instructions, pt was able to verbalize understanding, pt id band and iv site removed without complications. pt is able to ambulate with steady gait. pt took all belongings.
== END 2019-12-25 00:37 | disposition home or self-care (01) ==
LOC: EMR 20:50
DX: N39.0 Urinary tract infection, site not specified (principal); Z94.0 Kidney transplant status; I10 Essential (primary) hypertension; Z88.8 Allergy status to other drugs, medicaments and biological substances; Z91.013 Allergy to seafood
CPT/HCPCS: 36415; 80053; 81003; 82550; 82553; 83605; 84484; 85025; 87040; 87086; 87181; 96361; 96365; 99284; J0696; J7030